=== PATIENT | female | born 1990 | race African-American/Black ===

== ENCOUNTER 2016-05-07 00:49 | Emergency (ER) | payer MEDICAID ==
[~2016-05-07] VITALS: Ht 172.7 cm; Wt 69.9 kg
[~2016-05-07 00:49] MED LIST: LEVO50TA53 PO
[2016-05-07 01:13] VITALS: BP 106/70
== END 2016-05-07 03:51 | disposition left against medical advice (07) ==
LOC: ER 00:50
DX: M25.532 Pain in left wrist (principal); Z53.21 Procedure and treatment not carried out due to patient leaving prior to being seen by health care provider
CPT/HCPCS: 73110; 81025

== ENCOUNTER 2018-06-27 10:44 | Emergency (ER) | payer MEDICAID ==
[~2018-06-27] VITALS: Ht 172.7 cm; Wt 68.5 kg
[2018-06-27 10:55] VITALS: BP 102/62
[2018-06-27 11:22] LABS: Urine Bacteria FEW /hpf (None Seen); Urine Blood Negative /uL (Negative); Urine Mucus FEW (None Seen); Urine Specific Gravity 1.018 (1.001-1.035); Urine WBC 3 /hpf (0 - 5)
== END 2018-06-27 13:35 | disposition home or self-care (01) ==
LOC: ER 10:44
DX: O21.9 Vomiting of pregnancy, unspecified (principal); Z3A.08 8 weeks gestation of pregnancy
CPT/HCPCS: 81001; 81025

== ENCOUNTER 2019-07-03 13:38 | Emergency (ER) | payer MEDICAID ==
[~2019-07-03] VITALS: Ht 172.7 cm; Wt 74.4 kg
[2019-07-03 14:07] VITALS: BP 120/85
[2019-07-03] MEDS ORDERED: LIDOCAINE 1% HCL (LOCAL ANESTH.) INJ 20ML MDV IJ ONE (14:45)
== END 2019-07-03 15:35 | disposition home or self-care (01) ==
LOC: ER 13:38
DX: S01.112A Laceration without foreign body of left eyelid and periocular area, initial encounter (principal); Z88.8 Allergy status to other drugs, medicaments and biological substances; Z79.899 Other long term (current) drug therapy; W01.198A Fall on same level from slipping, tripping and stumbling with subsequent striking against other object, initial encounter; Y93.89 Activity, other specified; Y92.89 Other specified places as the place of occurrence of the external cause; Y99.8 Other external cause status
CPT/HCPCS: 12011; 99283; J2001

== ENCOUNTER 2019-07-09 16:55 | Emergency (ER) | payer MEDICAID ==
[~2019-07-09] VITALS: Ht 172.7 cm; Wt 73.0 kg
[2019-07-09 17:05] VITALS: BP 112/66
== END 2019-07-09 17:13 | disposition home or self-care (01) ==
LOC: ER 16:55
DX: S01.112D Laceration without foreign body of left eyelid and periocular area, subsequent encounter (principal); X58.XXXD Exposure to other specified factors, subsequent encounter

== ENCOUNTER 2021-07-16 05:42 | Emergency (ER) | payer MEDICAID ==
[~2021-07-16] VITALS: Ht 175.3 cm; Wt 77.1 kg
[2021-07-16 05:42] VITALS: BP 111/76
[2021-07-16] MEDS ORDERED: PROM1SOL4 PO (07:48)
== END 2021-07-16 07:56 | disposition home or self-care (01) ==
LOC: ER 05:42
DX: R05.9 Cough, unspecified (principal); J06.9 Acute upper respiratory infection, unspecified; F12.10 Cannabis abuse, uncomplicated
CPT/HCPCS: 71046

== ENCOUNTER → 2023-05-17 | Outpatient (CLI) | payer MEDICAID ==
[~2023-05-17] MED LIST changes: +CEPH500C PO; +IBUP1TAB5 PO; +PROM1SOL4 PO
[2023-05-17 15:15] LABS: Basophils # (auto) 0 10 ^3/uL (0-0.2); Basophils % (auto) 0.2 % (0.0-2.0); Eosinophils # (auto) 0 10 ^3/uL (0-0.8); Eosinophils % (auto) 0.3 % (0.0-7.0); Hematocrit 36.9 % (36.0-46.0); Hemoglobin 12.2 g/dL (12.2-16.2); Lymphocytes # (auto) 1.8 10 ^3/uL (0.4-5.4); Lymphocytes % (auto) 19.3 % (10.0-50.0); Mean Corpuscular Hemoglobin 26.9 pg (28.0-32.0); Mean Corpuscular Hgb Conc. 33.2 g/dL (32.0-36.0); Monocytes # (auto) 0.6 10 ^3/uL (0-1.3); Monocytes % (auto) 6.2 % (0.0-12.0); Neutrophils # (auto) 6.9 10 ^3/uL (1.6-8.6); Nucleated Red Blood Cells % 0.2 %; Red Blood Cells 4.55 10^6/uL (4.0-5.20); Red Cell Distribution Width 17.9 % (11.8-14.3); White Blood Cell 9.3 10^3/uL (4.4-10.8)
[2023-05-18 07:06] LABS: RPR Non Reactive (Non Reactive)
[2023-05-18 17:06] LABS: Chlamydia Trachomatis, NAA Negative (Negative); Neisseria gonorrhoeae, NAA Negative (Negative)
== END | disposition home or self-care (01) ==
LOC: LAB 14:47
PROVIDERS: ATTEND Obstetrics & Gynecology
DX: Z34.80 Encounter for supervision of other normal pregnancy, unspecified trimester (principal); Z3A.00 Weeks of gestation of pregnancy not specified
CPT/HCPCS: 36415; 83036; 85025; 86592

== ENCOUNTER 2023-05-25 09:38 | Inpatient (IN) | payer MEDICAID ==
[~2023-05-25] VITALS: Ht 172.7 cm; Wt 83.9 kg
[2023-05-25] MEDS ORDERED: LIDOCAINE 2%HCL (LOCAL ANESTH.) INJ 20ML MDV IJ PRN (11:30)
[2023-05-25] MEDS ORDERED: LACTATED RINGER'S 1,000 ML IV SCH (11:30)
[2023-05-25] MEDS ORDERED: BUTORPHANOL TARTRATE 2 MG/1 ML VIAL IV PRN ×2 (11:30)
[2023-05-25] MEDS ORDERED: PHISODERM TOP SOLN 240ML BTL TOP PRN (11:30)
[2023-05-25] MEDS ORDERED: TERBUTALINE SULFATE 1 MG/ML 1ML VIAL SC PRN (12:15)
[2023-05-25] MEDS ORDERED: TRANEXAMIC ACID 1,000 MG in SODIUM CHL 0.9% 100 ML IV ONE (12:15)
[2023-05-25] MEDS ORDERED: miSOPROStol 100 mcg TAB PR PRN (12:15)
[2023-05-25] MEDS ORDERED: miSOPROStol 100 mcg TAB SL PRN (12:15)
[2023-05-25 12:25] LABS: Basophils # (auto) 0 10 ^3/uL (0-0.2); Eosinophils # (auto) 0 10 ^3/uL (0-0.8); Eosinophils % (auto) 0.2 % (0.0-7.0); Hemoglobin 13.2 g/dL (12.2-16.2); Mean Corpuscular Hemoglobin 26.9 pg (28.0-32.0); Neutrophils # (auto) 6.8 10 ^3/uL (1.6-8.6); Neutrophils % (auto) 70.5 % (37.0-80.0); Nucleated Red Blood Cells % 0.1 %
[2023-05-25 12:27] LABS: Basophils % (auto) 0.5 % (0.0-2.0); Hematocrit 40.6 % (36.0-46.0); Lymphocytes % (auto) 21.2 % (10.0-50.0); Mean Corpuscular Hgb Conc. 32.5 g/dL (32.0-36.0); Monocytes # (auto) 0.7 10 ^3/uL (0-1.3); Monocytes % (auto) 7.6 % (0.0-12.0); Red Blood Cells 4.89 10^6/uL (4.0-5.20); White Blood Cell 9.6 10^3/uL (4.4-10.8)
[2023-05-25 12:30] LABS: Red Cell Distribution Width 24.1 % (11.8-14.3)
[2023-05-25 12:42] LABS: Alanine Aminotransferase 12 U/L (7-40); Albumin 3.9 g/dL (3.2-4.8); Alkaline Phosphatase 200 U/L (46-116); Anion Gap 6 (5-15); Aspartate Aminotransferase 21 U/L (13-40); Carbon Dioxide 23 mmol/L (20-30); Chloride 108 mmol/L (98-107); Glucose 69 mg/dL (74-106); Potassium 3.9 mmol/L (3.5-5.1); Sodium 137 mmol/L (136-145)
[2023-05-25 12:43] LABS: Bilirubin, Total 0.4 mg/dL (0.2-1.0); Total Protein 6.9 g/dL (5.7-8.2)
[2023-05-25 12:45] LABS: INR 0.91 (0.9-1.15); Prothrombin Time 9.6 sec (9.3-11.8)
[2023-05-25 12:46] LABS: Urine Bacteria NONE SEEN /hpf (None Seen); Urine Blood 1+ /uL (Negative); Urine Clarity Clear (Clear); Urine Hyaline Cast FEW /lpf (0 - 2); Urine Protein, UAD Negative (Negative); Urine Specific Gravity 1.008 (1.001-1.035); Urine Urobilinogen Normal (Negative); Urine WBC 4 /hpf (0 - 5); Urine pH 6.5 (5.0-8.0)
[2023-05-25 12:47] LABS: Urine Color Straw (Yellow)
[2023-05-25 12:54] LABS: Amphetamine Screen, Urine Neg (NEGATIVE); Barbiturate Scree,Urine Neg (NEGATIVE); Benzodiazephine Screen, Urine Neg (NEGATIVE); Cannabinoid Screen, Urine Pos (NEGATIVE); Cocaine Screen, Urine Neg (NEGATIVE); Opiate Scree,Urine Neg (NEGATIVE); Phencyclidine Screen, Urine Neg (NEGATIVE)
[2023-05-25 13:00] LABS: BUN/Creatinine Ratio 8.3 (10.0-20.0); Blood Urea Nitrogen < 5 mg/dL (9-23)
[2023-05-25] MEDS ORDERED: METHYLERGONOVINE MALEATE 0.2 MG/ML AMP IM PRN (13:15)
[2023-05-25] MEDS: LACT. RINGERS/OXYTOCIN 20UNITS 1,000 ML IV SCH (13:33)
[2023-05-25] MEDS: METHYLERGONOVINE MALEATE 0.2 MG/ML AMP IM ONE (14:56)
[2023-05-25] MEDS: LACT. RINGERS/OXYTOCIN 20UNITS 500 ML IV ONE ×2 (14:59→15:12)
[2023-05-25] MEDS: DERMOPLAST 60ML BOTTLE TOP PRN (14:59)
[2023-05-25] MEDS: WITCH HAZEL-GLYCERIN PAD TOP PRN (15:00)
[2023-05-25] MEDS: IBUPROFEN 600 MG TAB PO PRN (15:44)
[2023-05-25] MEDS: ONDANSETRON ODT 4 MG TAB PO PRN (16:58)
[2023-05-25 18:30] VITALS: BP 109/57; PULSE 66; RESP 20; TEMP 98; O2SAT 99
[2023-05-25] MEDS: ACETAMINOPHEN 325 MG TAB PO PRN (18:48)
[2023-05-25] MEDS ORDERED: IBU600T PO (20:55)
[2023-05-25] MEDS ORDERED: DOCU-94 PO (20:55)
[2023-05-25] MEDS ORDERED: PREN-96 PO (20:55)
[2023-05-25] MEDS ORDERED: LEV50T PO (21:03)
[2023-05-25] MEDS: DOCUSATE SOD 100 MG CAP PO SCH (22:15)
[2023-05-25 23:00] VITALS: BP 110/67; PULSE 66; RESP 18; TEMP 98; O2SAT 98
[2023-05-26 03:00] VITALS: BP 112/56; PULSE 72; RESP 16; TEMP 97.5; O2SAT 99
[2023-05-26] MEDS: LEVOTHYROXINE SODIUM 50 MCG TAB PO SCH (06:36)
[2023-05-26 06:40] VITALS: BP 112/64; PULSE 68; RESP 18; TEMP 98; O2SAT 97
[2023-05-26 07:33] LABS: Basophils # (auto) 0 10 ^3/uL (0-0.2); Eosinophils # (auto) 0 10 ^3/uL (0-0.8); Eosinophils % (auto) 0.2 % (0.0-7.0); Neutrophils # (auto) 8.5 10 ^3/uL (1.6-8.6); Red Blood Cells 4.36 10^6/uL (4.0-5.20)
[2023-05-26 07:35] LABS: Basophils % (auto) 0.3 % (0.0-2.0); Hematocrit 36.3 % (36.0-46.0); Hemoglobin 11.5 g/dL (12.2-16.2); Lymphocytes # (auto) 2.4 10 ^3/uL (0.4-5.4); Lymphocytes % (auto) 20.5 % (10.0-50.0); Mean Corpuscular Hemoglobin 26.4 pg (28.0-32.0); Mean Corpuscular Hgb Conc. 31.8 g/dL (32.0-36.0); Mean Corpuscular Volume 83.3 fL (80.0-100.0); Monocytes # (auto) 0.9 10 ^3/uL (0-1.3); Monocytes % (auto) 7.9 % (0.0-12.0); Neutrophils % (auto) 71.1 % (37.0-80.0); Nucleated Red Blood Cells % 0.1 %; Red Cell Distribution Width 23.4 % (11.8-14.3); White Blood Cell 11.9 10^3/uL (4.4-10.8)
[2023-05-26] MEDS: PRENATAL VITAMIN TAB PO SCH (08:00)
[2023-05-26 08:06] LABS: RPR Non Reactive (Non Reactive)
[2023-05-26 10:46] VITALS: BP 100/56; PULSE 76; RESP 20; TEMP 97.9; O2SAT 98
[2023-05-26 14:35] VITALS: BP 111/66; PULSE 80; RESP 20; TEMP 98; O2SAT 99
[2023-05-30 19:06] LABS: Treponema pallidum Ab (FTA-Ab) Non Reactive (Non Reactive)
== END 2023-05-26 17:25 | disposition home or self-care (01) | DRG 560 ==
LOC: UNDOADMOB 09:38 → LDRP 09:38 → OBSVTOIN 11:25 → LDRP 11:26
PROVIDERS: ADMIT Obstetrics & Gynecology; ATTEND Obstetrics & Gynecology
PROC: 10E0XZZ Delivery of Products of Conception, External Approach (ICD-10-PCS; principal; 2023-05-25)
DX: O80 Encounter for full-term uncomplicated delivery (principal); Z37.0 Single live birth; Z3A.39 39 weeks gestation of pregnancy; Z88.1 Allergy status to other antibiotic agents; Z91.018 Allergy to other foods
CPT/HCPCS: 36415; 59025; 59409; 76818; 80053; 80307; 81001; 81002; 85025; 85610; 85730; 86592; 86850; 86900; 86901; 94760; 96360; 96365; G0378; J2590; Q0162

== ENCOUNTER 2024-10-30 05:35 | Emergency (ER) | payer MEDICAID ==
[~2024-10-30] VITALS: Ht 172.7 cm; Wt 74.0 kg
[~2024-10-30 05:35] MED LIST changes: -CEPH500C PO; +DOCU-94 PO; +IBU600T PO; -IBUP1TAB5 PO; +LEVO-848 PO; -LEVO50TA53 PO; +PREN-96 PO; -PROM1SOL4 PO
[2024-10-30] MEDS ORDERED: CEPH250C PO (06:35)
--- NOTE | 2024-10-30 06:39 | ED.PDOC ---
Eye-HPI HPI Comments This is a 34 year old female presenting to the ED with chief complaint of dental pain. Patient reports that she has been experiencing left lower dental pain for the past 3 days. Patient relays that she has no upcoming dental appointment at this time, but believes she may have an infection as she has worsening pain when biting down on food. Patient requests pain control at this time before she can make another appointment with her dentist. Patient denies any fever, chills, sore throat, gum swelling, or ear pain. Chief Complaint: Tooth Pain Time Seen by MD: 06:37 Primary Care Provider: JULIUS Reviewed Notes: Nurses Notes, Medications, Allergies Allergies: Coded Allergies: Avocado (Verified Allergy, Intermediate, 05/25/23) Cephalexin (Verified Adverse Reaction, Intermediate, N/V/ PATEL, 09/02/14) Home Meds Active Scripts Cephalexin (KEFLEX CAPSULE) 250 Mg Cp, 1 CAP PO QID, #28 CAP Prov:TYREL NORWOOD MD 10/30/24 Levothyroxine Sodium (SYNTHROID TABLET) 50 Mcg Tb, 1 TAB PO DAILY, #30 TAB 5 Refills Prov:AMBERLY COTTON [facility] 05/25/23 Docusate Sodium (Colace) 100 Mg Cap, 1 CAP PO HSPRN PRN, #30 CAP 2 Refills Prov:AMBERLY COTTON 05/25/23 Vit W/ Ferrous Fumara ( One Daily) Daily Tab, 1 TAB PO DAILY, #90 TAB 3 Refills Prov:AMBERLY COTTON 05/25/23 Ibuprofen Micronized (MOTRIN TABLET) 600 Mg Tb, 600 MG PO Q6HP PRN for 20 Days, #80 TAB Prov:AMBERLY COTTON 05/25/23 Information Source: Patient Mode of Arrival: Ambulatory Timing: Days Duration: Since onset Prehospital treatment: None Quality: Pain Mouth Location: Left, Lower, Tooth/Teeth Mouth: Left, Lower, Premolar Onset: Spontaneous Throat Exposed to: None History of: None Associated signs and symptoms: Tooth Pain Past Medical History PAST MEDICAL HISTORY: Thyroid Surgical History (Other): Rt arm surgery [employer]ARD History: Denies all [employer]GUARD Hx, No Pertinent [employer]ARD History Family History Family History: Reviewed,noncontributory to illness, Unknown Social History Smoker: Non-Smoker Alcohol: Occasionally Drugs: Marijuana Lives In: Home Constitutional: denies: chills, diaphoresis, fatigue, fever, malaise, sweats, weakness, others EENTM: reports: mouth pain; denies: blurred vision, double vision, ear bleeding, ear discharge, ear drainage, ear pain, ear ringing, eye pain, eye redness, hearing loss, mouth swelling, nasal discharge, nose bleeding, nose congestion, nose pain, photophobia, tearing, throat pain, throat swelling, voice changes, others Respiratory: denies: cough, hemoptysis, orthopnea, SOB at rest, shortness of breath, SOB with excertion, stridor, wheezing, others Cardiovascular: denies: chest pain, dizzy spells, diaphoresis, Dyspnea on exertion, edema, irregular heart beat, left arm pain, lightheadedness, palpitations, PND, syncope, others Gastrointestinal: denies: abdomen distended, abdominal pain, blood streaked bowels, constipated, diarrhea, dysphagia, difficulty swallowing, hematemesis, melena, nausea, poor appetite, poor fluid intake, rectal bleeding, rectal pain, vomiting, others Genitourinary: denies: abnormal vagina bleeding, burning, dyspareunia, dysuria, flank pain, frequency, hematuria, incontinence, pain, , vagina discharge, urgency, others Neurological: denies: dizziness, fainting, headache, left sided numbness, left sided weakness, numbness, paresthesia, pre-existing deficit, right sided numbness, right sided weakness, seizure, speech problems, tingling, tremors, weakness, others Musculoskeletal: denies: back pain, gout, joint pain, joint swelling, muscle pa in, muscle stiffness, neck pain, others Integumetry: denies: bruises, change in color, change in hair/nails, dryness, laceration, lesions, lumps, rash, wounds, others Allergic/Immunocompromised: denies: Difficulty Healing, Frequent Infections, Hives, Itching, others Hematologic/Lymphatic: denies: anemia, blood clots, easy bleeding, easy bruising, swollen glands, others Endocrine: denies: excessive hunger, excessive sweating, excessive thirst, excessive urination, flushing, intolerance to cold, intolerance to heat, unexplained weight gain, unexplained weight loss, others Psychiatric: denies: anxiety, bipolar disorder, depression, hopeless, panic disorder, schizophrenia, sleepless, suicidal, others All Other Systems: Reviewed and Negative Physical Exam General Appearance: No Apparent Distress HEENT: Pharynx Normal, TMs Normal, Other (Mild tenderness to the left lower molars but no sign of any significant redness or swelling) Neck: Full Range of Motion, Non-Tender, Normal, Normal Inspection Respiratory: Chest Non-Tender, Lungs Clear, No Accessory Muscle Use, No Respiratory Distress, Normal Breath Sounds Cardiovascular: No Edema, No JVD, No Murmur, No Gallop, Normal Peripheral Pulses, Regular Rate/Rhythm Breast Exam: Deferred Gastrointestinal: No Organomegaly, Non Tender, No Pulsatile Mass, Normal Bowel Sounds, Soft Genitalia: Deferred Pelvic: Deferred Rectal: Deferred Extremities: No calf tenderness, Normal capillary refill, Normal inspection, Normal range of motion, Non-tender, No pedal edema Musculoskeletal : Apperance: Normal Neurologic: Alert, toolroom keeper II-XII nml as Tested, No Motor Deficits, Normal Affect, Normal Mood, No Sensory Deficits Cerebellar Function: Normal Reflexes: Normal Skin: Dry, Normal Color, Warm Lymphatic: No Adenopathy Was a procedure done? Was a procedure done?: No EENT DIFF Eye: N/A Mouth: Other (Dental pain, dental caries, dental abscess) X-Ray, Labs, Meds, VS Vital Signs Date Time Temp Pulse Resp B/P (MAP) Pulse Ox O2 Delivery O2 Flow Rate FiO2 10/30/24 05:36 97.7 66 16 119/76 98 97.7 The patient was told that she needs to follow up with her dentist. The patient is being discharged and will follow up with the primary care doctor as well The patient was given a prescription of cephalexin Time of 1ST Reevaluation: 06:40 Reevaluation 1ST: Unchanged Patient Education/Counseling: Diagnosis, Treatment, Prognosis Family Education/Counseling: No Family Present SEPSIS Sepsis Screen Date sepsis recognized/suspect: Oct 30, 2024 Time Sepsis recognized/suspect: 0539 Recent Procedure: No On Antibiotic Therapy: No Respiratory Rate >20: No Heart Rate >90: No Temp<36 C (96.8 F) or >38.3 C: No SBP <90 or MAP <65 mmHG: No New Acute Mental Status Change: No Is the patient on CPAP, BIPAP,: No Vital Signs Date Time Temp Pulse Resp B/P (MAP) Pulse Ox O2 Delivery O2 Flow Rate FiO2 10/30/24 05:36 97.7 66 16 119/76 98 97.7 Departure 1 Departure Time of Disposition: 06:40 Impression: Primary Impression: Dental caries Disposition: HOME / SELF CARE / HOMELESS Condition: Fair e-Prescriptions Cephalexin (KEFLEX CAPSULE) 250 Mg Cp 1 CAP PO QID, #28 CAP Prov: TYREL NORWOOD MD 10/30/24 Discharged With: Self Critical Care Note Critical Care Time?: No Stability Stability form required: No Heart Score Heart Score: Heart Score Response (Comments) Value History N/A 0 EKG N/A 0 Age N/A 0 Risk Factors N/A 0 Troponin N/A 0 Total 0 I personally scribed for TYREL NORWOOD MD ([email or web address]) on 10/30/24 at 06:39. Electronically submitted by Corbin Shahid ([email or web address]). TYREL NORWOOD MD Oct 30, 2024 06:39
[2024-10-30] MEDS ORDERED: AMOX500T3 PO (07:17)
[2024-10-30 08:20] VITALS: BP 112/70; PULSE 63; RESP 18; TEMP 98.6; O2SAT 97
== END 2024-10-30 07:20 | disposition home or self-care (01) ==
LOC: ER 05:35
DX: K02.9 Dental caries, unspecified (principal); Z88.1 Allergy status to other antibiotic agents